=== PATIENT | female | born 2000 | race Caucasian/White ===

== ENCOUNTER 2024-05-20 00:18 | Day surgery (SDC) | payer BC, SELFPAY ==
[2024-05-04 15:56] VITALS: BMI 18.6
[2024-05-20 14:25] VITALS: BP 97/63; PULSE 117; RESP 18; TEMP 36.3; O2SAT 100
[2024-05-20] MEDS: LACTATED RINGERS 1,000 ML 150 ML IV CONT (14:38)
--- NOTE | 2024-05-20 14:40 | P.PNAN_ITS ---
Anes - Initial Pre Proc Eval Procedure: Operation Date: 05/20/24 15:30 Proposed Procedures p Esophagogastroduodenoscopy & Colonoscopy - Sam Barrientos MD Date/Time: 05/20/24 14:40 Surgeon: Sam Barrientos MD Pre Op Diagnosis: N&V, Heartburn, Abd.Distension, Diarrhea,Abd.pain Patient Data Age: 23 Gender: F Height: 1.78 m Weight: 55.1 kg Last Vital Signs Temp 36.3 C L 05/20/24 14:25 Pulse 117 H 05/20/24 14:25 Resp 18 05/20/24 14:25 BP 97/63 L 05/20/24 14:25 Pulse Ox 100 05/20/24 14:25 O2 Del Method Room Air 05/20/24 14:25 Allergies Allergy/AdvReac Type Severity Reaction Status Date / Time No Known Allergies Allergy Unverified 05/20/24 14:23 Home Medications Medication Instructions Recorded Confirmed Type hyoscyamine sulfate 0.375 mg 0.375 mg PO Q12H 1 month #60 tabs 04/15/24 05/20/24 Rx tablet,extended release,12 hr Patient hx anesthesia problems: none Family hx anesthesia problems: none Results Review: All pre-operative results and documents have been reviewed as part of the pre- operative evaluation. [facility] Past Medical History Medical History Abdominal pain Bloating Diarrhea Heartburn Nausea & vomiting Social History Social History Smoking status: Never smoker Alcohol intake: current Drinks per week: 3 Substance use: current Substance use type: marijuana Spiritual care concerns: No Anes - Eval Final PreProcedure Day of Procedure 05/20/24 14:40 Patient weight: normal Heart: regular rate and rhythm Lungs: clear to auscultation Airway: Mallampati scale class II Neurological: alert and oriented Last oral intake: >/= 8 hours ASA classification: II Emergent: no Anesthetic plan: proceed Anesthesia type and monitoring: general GIVS and standard monitoring Results Review: All pre-operative results and documents have been reviewed as part of the pre- operative evaluation. Informed Consent: The patient's anesthetic plan and its attendant risks and benefits were discussed with the patient/family/POA. Questions were solicited and answers provided to the satisfaction of the patient/family/POA.
--- NOTE | 2024-05-20 15:08 | PM.HPGS ---
History of Present Illness History of Present Illness Consent: Risks, benefits, and alternatives have been discussed and questions answered. Patient agrees to proceed with procedure. Chief complaint: N&V, Heartburn, Abd.Distension, Diarrhea,Abd.pain Narrative: Lulu Phan is a 23 year old female with longstanding history of abdominal discomfort, alternating diarrhea constipation, bloating, etc now using bentyl that helps only some of her symptoms. Serology for celiac negative, she was told that probably has IBS but never had scopes. Review of Systems Review of Systems: All systems reviewed & are unremarkable except as noted in HPI and below PMFSH Past Medical History Medical History (Updated 05/20/24 @ 15:09 by Sam Barrientos MD) Abdominal pain Alternating constipation and diarrhea Bloating Diarrhea Heartburn Nausea & vomiting Social History Social History Smoking status: Never smoker Alcohol intake: current Drinks per week: 3 Substance use: current Substance use type: marijuana Spiritual care concerns: No Meds Home Medications and Allergies Home Medications Medication Instructions Recorded Confirmed Type hyoscyamine sulfate 0.375 mg 0.375 mg PO Q12H 1 month #60 tabs 04/15/24 05/20/24 Rx tablet,extended release,12 hr Allergies Allergy/AdvReac Type Severity Reaction Status Date / Time No Known Allergies Allergy Unverified 05/20/24 14:23 Vital Signs Vital Signs - 24 hr 05/20/24 14:25 Temperature 97.3 F L Pulse Rate 117 H Respiratory Rate 18 Blood Pressure 97/63 L Pulse Oximetry 100 Oxygen Delivery Room Air Exam Const: General: comfortable and no acute distress HENMT: Face/Nose/Sinus: Normal nares present Eyes: General: appearance normal, both eyes and all related structures Neck: Neck: no JVD Resp: Auscultation: clear to auscultation bilaterally Cardio: Rate: regular rate Rhythm: regular rhythm GI: Inspection: non-distended GI Palp: Yes Soft to palpation Skin: General skin exam: normal color Neuro: General: gait normal Speech: normal speech Extrem: General: normal to inspection Psych: Mental Status: mental status grossly normal Assessment and Plan Assessment and plan (1) Bloating: Code(s): R14.0 - Abdominal distension (gaseous) Status: Acute Assessment and Plan: egd with bx (2) Abdominal pain: Code(s): R10.9 - Unspecified abdominal pain Status: Acute (3) Alternating constipation and diarrhea: Code(s): R19.8 - Other specified symptoms and signs involving the digestive system and abdomen Status: Acute Assessment and Plan: colonoscopy with random bx
[2024-05-20] MEDS: BENZOCAINE (*SP) 60 ML SPRAY CAN (HURRICAINE) 1 SPRAY MUCOUS MEM (15:11)
--- NOTE | 2024-05-20 15:20 | SUR.OPER ---
EGD ended at 1516, colon began at 1520
[2024-05-20 15:33] VITALS: BP 93/45; PULSE 81; RESP 20; O2SAT 100
[2024-05-20 15:43] VITALS: BP 100/62; PULSE 80; RESP 23; O2SAT 100
[2024-05-20 15:53] VITALS: BP 105/61; PULSE 71; RESP 20; O2SAT 100
== END 2024-05-20 16:00 | disposition home or self-care (01) ==
PROVIDERS: PCP Nurse Practitioner Family; Referring Provider Nurse Practitioner Family; Visit Provider Internal Medicine Gastroenterology
PROC: 0DJ08ZZ Inspection of Upper Intestinal Tract, Via Natural or Artificial Opening Endoscopic (ICD-10-PCS; CPT 43235; principal; 2024-05-20 15:30)
DX: K29.50 Unspecified chronic gastritis without bleeding (principal); K29.80 Duodenitis without bleeding; R19.8 Other specified symptoms and signs involving the digestive system and abdomen; R14.0 Abdominal distension (gaseous); R12 Heartburn
CPT/HCPCS: 43239; 45380; 88305; J2704; J7120

== ENCOUNTER 2024-08-07 10:51 | Outpatient (CLI) | payer BC, SELFPAY ==
--- NOTE | ~2024-08-07 | NM_ITS ---
EXAMINATION: NM hepatobiliary wo pharm DATE: 08/07/2024 10:52 INDICATION: Abdominal distention. COMPARISON: None. TECHNIQUE: 5.2 mCi Tc-99m mebrofenin (Choletec) was administered intravenously. Scintigraphic images of the abdomen were obtained for one hour. Then, the patient drank 8 oz Ensure, and imaging was cont inued for 60 minutes. FINDINGS: There is normal clearance of radiotracer from the blood pool. There is homogeneous tracer u ptake by the liver. Activity progresses to the bowel and gallbladder. Gallbladder ejection fraction (GBEF) was 54%. Note that with this technique, normal GBEF >= 33%. IMPRESSION: 1. Normal hepatobiliary scintigraphy. Reviewed, dictated and finalized at location A.
[2024-08-07 11:08] LABS: Hematocrit 36.2 % (37.0-47.0); Hemoglobin 13.1 g/dL (12.0-15.0); Mean Corpuscular HGB Conc 36.2 g/dl (32-36); Mean Corpuscular Hemoglobin 31.3 pg (26-34); Mean Corpuscular Volume 86.4 fl (80-100); Mean Platelet Volume 8.4 fl (7.4-10.4); Platelet Count Result 247 k/mm3 (150-375); Red Blood Count 4.19 M/mm3 (4.2-5.4); Red Cell Distribution Width 13.1 % (11.5-14.5); White Blood Count 3.3 K/mm3 (4.5-10.0)
[2024-08-07 11:20] LABS: Alanine Aminotransferase 20 U/L (6-35); Albumin Level 4.3 g/dL (3.5-5.1); Alkaline Phosphatase 56 U/L (38-126); Anion Gap 7 mmol/L (4-12); Aspartate Amino Transferase 28 U/L (14-36); Bilirubin,Total 2.3 mg/dL (0.2-1.3); Blood Urea Nitrogen 11 mg/dL (7-17); Carbon Dioxide 30 mmol/L (22-30); Chloride 101 mmol/L (98-107); Estimated Glomerular Filt Rate > 60; Glucose 89 mg/dL (65-110); Lipase 79 U/L (23-300); Sodium 138 mmol/L (137-145)
[2024-08-07 11:42] LABS: Iron 75 ug/dL (37-170)
[2024-08-07 11:46] LABS: Vitamin D 25 Hydroxy 47.4 ng/mL
[2024-08-07 11:52] LABS: Percent Iron Saturation 25 % (20-50)
[2024-08-07 12:26] LABS: Folic Acid 13.8 ng/mL (2.76->20)
[2024-08-11 21:44] LABS: Fecal Fat, Ql Normal (Normal)
== END 2024-08-07 10:52 | disposition home or self-care (01) ==
PROVIDERS: PCP Nurse Practitioner Family; Visit Provider Nurse Practitioner Family
DX: R14.0 Abdominal distension (gaseous) (principal); K58.0 Irritable bowel syndrome with diarrhea; R10.9 Unspecified abdominal pain; R11.2 Nausea with vomiting, unspecified
CPT/HCPCS: 36415; 78226; 80053; 82306; 82607; 82653; 82705; 82728; 82746; 83540; 83550; 83690; 85027; A9537

== ENCOUNTER 2024-08-29 09:41 | Outpatient (CLI) | payer BC, SELFPAY ==
--- NOTE | ~2024-08-29 | US_ITS ---
EXAMINATION: US abdomen complete DATE: 08/29/2024 10:15 INDICATION: R11.2 - Nausea with vomiting, unspecified TECHNIQUE: Multiple grayscale and Doppler ultrasound images of the abdomen were obtained. COMPARISON: Hepatobiliary scan 08/07/2024. FINDINGS: The visualized portions of the pancreas are normal. The liver is normal with normal echogen icity and echotexture. No surface nodularity. Normal hepatopetal flow in the main portal vein. The ga llbladder is normal with no abnormal wall thickening, pericholecystic fluid or stones. The common paulino e duct measures 3 mm. There was no sonographic Hill sign. The visualized portions of the aorta and inferior vena cava are normal. The right kidney measures 12.6 x 4.1 x 4.3 cm. The left kidney measures 11.6 x 3.5 x 3.0 cm. The kidn eys demonstrate normal parenchymal echogenicity. There is no hydronephrosis. The spleen is normal in appearance and measures 11.6 cm. IMPRESSION: Normal abdominal ultrasound findings. Reviewed, dictated and finalized at location K.
== END 2024-08-29 09:42 | disposition home or self-care (01) ==
LOC: ANHIMG 09:42
PROVIDERS: PCP Nurse Practitioner Family; Visit Provider Nurse Practitioner Family
DX: R11.2 Nausea with vomiting, unspecified (principal); R10.9 Unspecified abdominal pain; R14.0 Abdominal distension (gaseous)
CPT/HCPCS: 76700

== ENCOUNTER 2024-12-26 12:34 | Outpatient (CLI) | payer BC, SELFPAY ==
--- OUTSIDE RECORDS SUMMARY | 2024-12-26 12:37 | XMS_ITS | Clinical Summary ---
Author Organization [facility] Address [address] [place] [id number] Care Team Providers Care Sugar Mill Worker Name Role Phone Pcp, No Primary Care Provider Unavailabl e Allergies No known active allergies Medications No known medications Active Problems No known active problems Immunizations Name Administration Dates Next Due Meningococcal Conjugate MCV4P (Menactra) 019,07/10/2016 Surgical History Surgery Date Site/Laterality Comments NO PAST SURGERIES Medical History Medical History Date Comments No known health problems Family History Medical History Relation Comments Diabetes Maternal Grandfather Relation Status Comments Maternal Grandfather Social History Tobacco Use Types Packs/Day Years Used Date Smoking Tobacco: Never Smokeless Tobacco: Never Inadequate Housing Answer Date Recorded Social Determinants: Housing (Overall Score Help er) 0 07/06/2019 Sex and Gender Information Value Date Recorded Sex Assigned at Not on file Gender Identity Not on file Sexual Orientation Not on file Job Start Date Occupation Industry Not on file Not on file Not on file Obstetrics History Last Filed Vital Signs Vital Sign Reading Time Taken Comments Blood Pressure 137/83 12/02/2020 1:31 PM STAFF [employer] OFFICER Pulse 75 12/02/2020 1:31 PM STAFF [employer] OFFICER Temperature 36.8 ??C (98.3 ??F) 12/02/2020 1:31 PM CS T Respiratory Rate 16 12/02/2020 1:31 PM STAFF [employer] OFFICER Oxygen Saturation 98% 12/02/2020 1:31 PM STAFF [employer] OFFICER Inhaled Oxygen Concentration - - Weight 67.1 kg (148 lb) 12/02/2020 1:31 PM STAFF [employer] OFFICER Height 177.8 cm (5' 10 ) 12/02/2020 1:31 PM STAFF [employer] OFFICER Body Mass Index 21.24 12/02/2020 1:31 PM STAFF [employer] OFFICER Plan of Treatment Health Maintenance Due Date Last Done Comments Depression Screening 2013 HPV Vaccine (1 - 3-dose series) 2016 Meningococcal Serogroup B Vaccine (1 of 2 - Standard) 2017 Chlamydia and Gonorrhea Screening (if sexually active) 2019 DTaP/Tdap/Td Vaccine (7 - Td or Tdap) 11/27/2022 11/27/2012, 12/12/2006, 06/10/2003, Additional history exists COVID-19 Vaccine ( season) 2024 Influenza Vaccine (#1) 2024 Hepatitis B Vaccine Completed 08/06/2002, 2001, 2001 Pneumococcal Vaccine 0-49 Aged Out 2002, 05/07/2002, 03/12/2002, Additional history exists No longer eligible based on patient's age to complete this topic Varicella Vaccine Completed 12/12/2006, 11/05/2002 Meningococcal Vaccine Completed 06/29/2019, 016 Hepatitis A Vaccine Aged Out No longe r eligible based on patient's age to complete this topic Care Teams Sugar Mill Worker Relationship Specialty Start Date End Date Pcp, No PCP - General 06/29/19
--- OUTSIDE RECORDS SUMMARY | 2024-12-26 12:37 | XMS_ITS | Referral Summary ---
Author Organization [facility] Address [address] [place] [address] Care Team Providers Care Resourcing Advisor Name Role Phone Pcp, No Primary Care Provider Unavailabl e Allergies No known active allergies Medications No known medications Active Problems No known active problems Immunizations Name Administration Dates Next Due Meningococcal Conjugate MCV4P (Menactra) 019,07/10/2016 Social History Tobacco Use Types Packs/Day Years [...] file Not on file Not on file Last Filed Vital Signs Vital Sign Reading Time Taken Comments Blood Pressure 137/83 12/02/2020 1:31 PM WELDING SPECIALIST Pulse 75 12/02/2020 1:31 PM WELDING SPECIALIST Temperature 36.8 ??C (98.3 ??F) 12/02/2020 1:31 PM CS T Respiratory Rate 16 12/02/2020 1:31 PM WELDING SPECIALIST Oxygen Saturation 98% 12/02/2020 1:31 PM WELDING SPECIALIST Inhaled Oxygen Concentration - - Weight 67.1 kg (148 lb) 12/02/2020 1:31 PM WELDING SPECIALIST Height 177.8 cm (5' 10 ) 12/02/2020 1:31 PM WELDING SPECIALIST Body Mass Index 21.24 12/02/2020 1:31 PM WELDING SPECIALIST Plan of Treatment Not on file Care Teams Resourcing Advisor Relationship Specialty Start Date End Date Pcp, No PCP - General 06/29/19
--- OUTSIDE RECORDS SUMMARY | 2024-12-26 12:37 | XMS_ITS | Clinical Summary ---
Author Organization [facility] Address [address] [place] [address] Care Team Providers Care Hand Drawer In Name Role Phone Karlee Rene NP Primary Care Provider [phone] Allergies No known active allergies Medications Cryselle, 28, 0.3-30 mg-mcg per tablet Take 1 tablet by mouth daily Active dicyclomine (BENTYL) 10 mg capsule Take 1 capsule (10 mg total) by mouth every 6 (six) hours 90 tablet 1 08/22/2023 Active naproxen (NAPROSYN) 500 mg tablet Take 1 tablet (500 mg total) by mouth 2 (two) times a day as needed for pain (pain) for up to 7 days 14 tablet 10/03/2023 Active Active Problems No known active problems Immunizations Name Administration Dates Next Due DTaP, Unspecified 12/12/2006, 3,05/07/2002,03/12/2002, 01/07/2002 Hep B, Unspecified 08/06/2002,2001, 001 HiB 03/04/2003,05/07/2002,03/12/2002 ,01/07/2002 Influenza, Unspecified 08/22/2023(Deferr ed: Patient Refused),11/25/2022(Deferred: Patient Refused) MMR 12/12/2006,03/04/2003 Meningococcal MCV4P (Menactra) 06/29/2019,2015 Pneumococcal Conjugate 7-Valent 03/04/2003,05/07,03/12/2002,01/07/2002 Polio, Unspecified 12/12/2006,05/07/2002, 002,01/07/2002 Tdap 11/27/2012 Varicella 12/12/2006,11/05/2002 Family History Medical History Relation Name Comments No Known Problems Brother No Known Problems Father Cancer Maternal Grandfather Diabetes Maternal Grandfather No Known Problems Mother Cancer Paternal Grandfather Relation Name Status Comments Brother Alive Father Alive Maternal Grandfather Mother Alive Paternal Grandfather Social History Tobacco Use Types Packs/Day Years Used Date Smoking Tobacco: Never Smokeless Tobacco: Never Tobacco Cessation:Counseling Given: Not Answered PHQ-2 Answer Date Recorded PHQ-2 Total Score (If total score is 3 or more points, staff should administer the PHQ-9) 0 10/03/2023 Personal Safety Answer Date Recorded Getting School Help Needed Not on file 01/26 Comments Unknown Sex and Gender Information Value Date Recorded Sex Assigned at Not on file Legal Sex Female 9:04 AM CDT Gender Identity Not on file Sexual Orientation Not on file Obstetrics History Last Filed Vital Signs Vital Sign Reading Time Taken Comments Blood Pressure 138/78 10/03/2023 1:59 PM MEAT DRESSER Pulse 88 10/03/2023 1:59 PM MEAT DRESSER Temperature 36.3 ??C (97.4 ??F) 10/03/2023 1:59 PM CS T Respiratory Rate 18 10/03/2023 1:59 PM MEAT DRESSER Oxygen Saturation 98% 10/03/2023 1:59 PM MEAT DRESSER Inhaled Oxygen Concentration - - Weight 60.8 kg (134 lb) 10/03/2023 1:59 PM MEAT DRESSER Height 177.8 cm (5' 10 ) 10/03/2023 1:59 PM MEAT DRESSER Body Mass Index 19.23 10/03/2023 1:59 PM MEAT DRESSER Plan of Treatment Health Maintenance Due Date Last Done Comments Cervical Cancer Screening 2001 Hepatitis C Screening 2001 HPV Vaccines (1 - 3-dose series) 2016 Meningococcal B Vaccine (1 o f 2 - Patient Seeks Protection) 2017 Regular Well Visit/Exam 18-64 2019 DTaP/Tdap/Td Vaccine (7 - Td or Tdap) 11/27/2022 11/27/2012, 12/12/2006, 06/10/2003, Additional history exists Covid-19 Vaccine (2023-2 5 season) 2024 04/18/2022, 05/15/2021, 04/17/2021 Influenza Vaccine (#1) 2024 Depression Screening 10/03/2024 10/03/2023, 08/22/20 23 Pneumococcal vaccine <65 Completed 003, 05/07/2002, 03/12/2002, Additional history exists Varicella Vaccines Completed 12/12/2006, 11/05/2002 Insurance [facility] [employer] Care Teams Hand Drawer In Relationship Specialty Start Date End Date Karlee Rene NP [address] [address] PCP - General Family Medicine 08/22/23
--- OUTSIDE RECORDS SUMMARY | 2024-12-26 12:37 | XMS_ITS | Referral Summary ---
Author Organization [facility] Address [address] [place] [address] Care Team Providers Care Bank Cashier Name Role Phone Karlee Rene NP Primary Care Provider [phone] Allergies No known active allergies Medications Cryselle, [...] Unspecified 12/12/2006,05/07/2002, 002,01/07/2002 Tdap 11/27/2012 Varicella 12/12/2006,11/05/2002 Social History Tobacco Use Types Packs/Day Years [...] on file Sexual Orientation Not on file Last Filed Vital Signs Vital Sign Reading Time Taken Comments Blood Pressure 138/78 10/03/2023 1:59 PM WATCH ADJUSTER Pulse 88 10/03/2023 1:59 PM WATCH ADJUSTER Temperature 36.3 ??C (97.4 ??F) 10/03/2023 1:59 PM CS T Respiratory Rate 18 10/03/2023 1:59 PM WATCH ADJUSTER Oxygen Saturation 98% 10/03/2023 1:59 PM WATCH ADJUSTER Inhaled Oxygen Concentration - - Weight 60.8 kg (134 lb) 10/03/2023 1:59 PM WATCH ADJUSTER Height 177.8 cm (5' 10 ) 10/03/2023 1:59 PM WATCH ADJUSTER Body Mass Index 19.23 10/03/2023 1:59 PM WATCH ADJUSTER Plan of Treatment Not on file Insurance IDPA [employer] ID [employer] ID Care Teams Bank Cashier Relationship Specialty Start Date End Date Karlee Rene NP [address] [facility] [address] [place] [address] PCP - General Family Medicine 08/22/23
[2024-12-26 12:57] LABS: Alanine Aminotransferase 20 U/L (6-35); Albumin Level 4.5 g/dL (3.5-5.1); Alkaline Phosphatase 64 U/L (38-126); Aspartate Amino Transferase 27 U/L (14-36); Bilirubin Indirect 2.3 mg/dL (0-1.1); Bilirubin,Total 2.4 mg/dL (0.2-1.3)
[2024-12-26 13:28] LABS: Thyroid Stimulating Hormone 0.829 uIU/mL (0.465-4.680)
== END 2024-12-26 12:35 | disposition home or self-care (01) ==
LOC: ANHLAB 12:35
PROVIDERS: PCP Nurse Practitioner Family; Visit Provider Nurse Practitioner Family
DX: R17 Unspecified jaundice (principal); R63.4 Abnormal weight loss
CPT/HCPCS: 36415; 80076; 84443